=== PATIENT | male | born 1940 | race Caucasian/White ===

== ENCOUNTER → 2016-06-01 | Outpatient (CLI) | payer MEDICARE, OTHER ==
[~2016-06-01] MED LIST: ADALAT CC PO; ALBUTEROL17 GM INH; ALLEGRA ALLERG180 MG PO; ALLEGRA PO; ALLERGIE SHOTS; AMOXICILLIN500 M1 PO; BACTRIM DS TABL1 TA1 PO; CARVEDILOL3.125 MG PO; FAMCICLOVIR250 MG PO; FISH OIL; FISH OIL 1,2001 EAC1 PO; FISH OIL PO; FLOMAX0.4 M1 PO; FLONASE 0.05% N16 G1; FLONASE16 GM; HCTZ PO; KCL PO; LODINE PO; NEXIUM PO; PERCOCET 5-3251 TAB PO; PRADAXA150 MG PO; PRILOSEC PO; PROSCAR5 MG PO; UROXATRAL10 MG PO; VICODIN 5/500 T1 TAB PO; ZITHROMAX PO; ZOCOR PO; ZOCOR80 MG PO; ZYLOPRIM PO; [UNRECOGNIZED DRUG - OTHER]; [UNRECOGNIZED DRUG - OTHER]
--- NOTE | ~2016-06-01 | CR229 ---
[facility]. [facility] A Service of [facility] & [facility] RADIOLOGY TEXT RESULTS PATIENT: BLANCA MANUEL LOCATION: [facility] : 36 UNIT #: [id number] AGE: [address]: TAWANDA PALACIOS MD SEX: M ORDER DR: [id number] [place] [id number] O MR#: [id number] Acc #: [id number] NAME: BLANCA MANUEL : 1940 SEX: M STUDY DATE/TIME: 06/01/2016 12:20 UNIT: SRA ROOM: STUDY DESCRIPTION: CR Shoulder Min 2 View Lt Attending Physician: Tawanda Palacios M.D. Referring Physician: Tawanda Palacios M.D. Ordering Physician: Tawanda Palacios M.D. Primary Care Physician: Tawanda Palacios M.D. MEDICAL IMAGING REPORT This report is preliminary unless electronic signature is present. EXAM Left shoulder INDICATIONS Left shoulder pain for 4 months FINDINGS Three-views of the left shoulder were obtained. There is no fracture or dislocation. There is mild degenerative change at the AC joint. IMPRESSION Mild AC joint degenerative change, otherwise normal. Dictated by... Brett Joseph M.D. THIS IS AN ELECTRONICALLY VERIFIED REPORT Brett Joseph M.D. at 06/02/2016 7:10 AM FEL/to TD: 06/01/2016 17:54 JOB #: [id number] MEDICAL IMAGING REPORT Page 1 of 1
== END | disposition home or self-care (01) ==
LOC: SRAD 12:15
DX: M25.512 Pain in left shoulder (principal)
CPT/HCPCS: 73030